=== PATIENT | female | born 1975 | race Caucasian/White ===

== ENCOUNTER → 2019-08-03 | Outpatient (CLI) | payer OTHER ==
--- NOTE | 2019-08-03 11:48 | US ---
EXAMINATION TYPE: US pelvis complete transvag DATE OF EXAM: 08/03/2019 COMPARISON: 2009 CLINICAL HISTORY: PELVIC PAIN R10.2. TECHNIQUE: . Transabdominal sonographic images of the pelvis were acquired. Transvaginal sonographi c images were medically necessary to better assess the following anatomy: ovaries Date of LMP: 07/28/2019 EXAM MEASUREMENTS: Uterus: 9.2 x 3.5 x 4.0 cm Endometrial Stripe: 0.3 cm Right Ovary: 2.3 x 1.6 x 1.3 cm Left Ovary: 2.3 x 1.8 x 2.1 cm 1. Uterus: Retroverted small nabothian cyst 0.3 x 0.4 x 0.5 cm, 2. Endometrium: small probable polyp 0.2 cm, fluid in endometrium 3. Right Ovary: small cyst 0.4 x 0.3 x 0.3 cm 4. Left Ovary: multiple cysts largest 1.4 x 1.2 x 1.4 cm, 0.9 x 1.4 x 1.2 cm 5. Bilateral Adnexa: wnl 6. Posterior cul-de-sac: wnl IMPRESSION: 1. Probable endometrial polyp. 2. Ovarian cysts likely functional in nature. This can be confirmed with follow-up study in 6 weeks.
== END | disposition home or self-care (01) ==
LOC: RADUSWWP 10:35
PROVIDERS: ATTEND Family Medicine
DX: R10.2 Pelvic and perineal pain (principal)
CPT/HCPCS: 76830; 76856

== ENCOUNTER → 2020-03-15 | Outpatient (CLI) | payer OTHER ==
--- NOTE | 2020-03-15 14:55 | CT ---
EXAMINATION TYPE: CT abdomen pelvis w con DATE OF EXAM: 03/15/2020 COMPARISON: 03/02/2010 INDICATION: Abdominal bloating, gassy and low pelvic pain DLP: 919.1 mGycm, Automated exposure control for dose reduction was used. CONTRAST: 100 mL of Isovue 300. Study performed with Oral Contrast TECHNIQUE: Axial images were obtained from above the diaphragm to the pubic rami in the axial plane a t 5 mm thick sections. Reconstructed images are reviewed on the computer in the coronal plane. FINDINGS: Limited CT sections are obtained the lung bases. The lung bases are clear. CT ABDOMEN: Liver: Normal Spleen: Normal Pancreas: Normal Adrenal glands: The adrenal glands are normal. Gallbladder: Normal Kidneys: No masses are evident. No hydronephrosis is present. No cysts are present. Delayed images were obtained through the kidneys, which remain unremarkable. There is a 0.5 cm calcification periph eral left mid kidney. Aorta: Vascular calcification is within the aorta. Inferior vena cava: Normal. CT PELVIS: Loops of bowel within the abdomen and pelvis are normal. There are loops of bowel which are incom pletely distended or lack oral contrast limiting their evaluation. Appendix: Normal as visualized. Urinary bladder: Normal. Genitourinary structures: Uterus is normal. Adnexal regions are clear. No free fluid is within the pe lvis. Osseous structures: No suspicious lytic or sclerotic lesions. IMPRESSIONS: 1. Nonobstructing 0.5 cm calcification peripheral left mid kidney.
== END | disposition home or self-care (01) ==
LOC: RADCTMAIN 07:38
PROVIDERS: ATTEND Nurse Practitioner Family
DX: N28.89 Other specified disorders of kidney and ureter (principal)
CPT/HCPCS: 74177; Q9967

== ENCOUNTER → 2020-03-23 | Outpatient (CLI) | payer OTHER ==
--- NOTE | 2020-03-24 09:35 | ECHOF ---
Referral Reason:R01.1 Cardiac murmur, R00.2 palpations, Abn EKG MEASUREMENTS -------- HEIGHT: 167.6 cm WEIGHT: 85.3 kg BP: RVIDd: 3.0 cm (< 3.3) IVSd: 0.9 cm (0.6 - 1.1) LVIDd: 4.5 cm (3.9 - 5.3) LVPWd: 0.9 cm (0.6 - 1.1) IVSs: 1.4 cm LVIDs: 2.9 cm LVPWs: 1.4 cm LA Diam: 3.2 cm (2.7 - 3.8) Ao Diam: 2.9 cm (2.0 - 3.7) AV Cusp: 1.9 cm (1.5 - 2.6) MV EXCURSION: 15.184 mm (> 18.000) MV EF SLOPE: 125 mm/s (70 - 150) EPSS: 0.7 cm MV E Jakub: 0.91 m/s MV DecT: 279 ms MV A Jakub: 0.58 m/s MV E/A Ratio: 1.55 FINDINGS -------- Sinus rhythm. This was a technically good study. LV size, wall thickness and systolic function are normal, with an EF greater than 55%. The left shine tricular size is normal. The right ventricle is normal in size. Normal LA size by volume 22+/-6 ml/m2. The right atrial size is normal. Interatrial and interventricular septum intact. The aortic valve is trileaflet, and appears structurally normal. No aortic stenosis or regurgitation. The mitral valve is normal. There is trace mitral regurgitation. The tricuspid valve appears structurally normal. No regurgitation noted There is no pulmonic regurgitation present. The aortic root size is normal. Normal inferior vena cava with normal inspiratory collapse consistent with estimated right atrial pre ssure of 5 mmHg. There is no pericardial effusion. CONCLUSIONS -------- 1. LV size, wall thickness and systolic function are normal, with an EF greater than 55%. 2. Normal LA size by volume 22+/-6 ml/m2. 3. The aortic valve is trileaflet, and appears structurally normal. No aortic stenosis or regurgitati on. 4. There is trace mitral regurgitation. 5. There is no pericardial effusion. [employer] DR[employer]: Joelle Jackson RDCS
--- NOTE | 2020-03-28 14:00 | HM ---
Baseline EKG showed sinus rhythm. Patient remained in sinus rhythm throughout the recording with an average heart rate of 179. Minimum is 55 and maximum 131. Patient had occasional APCs and occasional PVCs. Patient did not maintain a diary. Final impression #1. Sinus rhythm. #2. Occasional APCs. #3. Occasional PVCs #4. Patient did not maintain a diary MTDD
== END | disposition home or self-care (01) ==
LOC: RADECHMAIN 11:26
PROVIDERS: ATTEND Family Medicine
DX: R00.2 Palpitations (principal); R94.31 Abnormal electrocardiogram [ECG] [EKG]; R01.1 Cardiac murmur, unspecified
CPT/HCPCS: 93225; 93226; 93306

== ENCOUNTER → 2020-04-14 | Outpatient (CLI) | payer OTHER ==
--- NOTE | 2020-04-14 11:03 | FL ---
EXAMINATION TYPE: FL UGI air w small bowel DATE OF EXAM: 04/14/2020 COMPARISON: CT abdomen and pelvis March 15, 2020. HISTORY: Bloating and abdominal pain. GERD. TECHNIQUE: A double contrast UGI study is performed with small bowel follow through. 40 seconds of f luoroscopic time utilized. 65 spot images apex. FINDINGS: [employer] image of the abdomen shows no gross abnormality. The esophagus shows normal motility and emptying into the stomach. No evidence of fixed hiatal herni a or stricture noted. No diverticulum seen. The stomach shows less than optimal distention due to poor tolerance of air crystals. No obvious mass or focal ulcer. No prominence of gastric folds. Mild to moderate esophageal reflux was seen during r eal time performance of this study into the mid to distal esophagus. The duodenal bulb and sweep are unremarkable. The small bowel study shows normal transit to the colon in less than 75 minutes. There is normal mu cosal fold pattern throughout the small bowel. There is no evidence of any stricture or filling defe ct noted. The terminal ileum is spotted and appears within normal limits. IMPRESSION: Ncop-rh-hvidcxok distal gastroesophageal reflux.
== END | disposition home or self-care (01) ==
LOC: RADFLMAIN 07:40
PROVIDERS: ATTEND Family Medicine
DX: K21.9 Gastro-esophageal reflux disease without esophagitis (principal)
CPT/HCPCS: 74240; 74248

== ENCOUNTER 2020-04-18 07:58 | Day surgery (SDC) | payer OTHER ==
[2020-03-28 09:27] VITALS: BMI 30.3
[~2020-04-18 07:58] MED LIST: LACTATED RINGERS 1,000 ML IV SCH; LIDOCAINE 1% (10MG/ML) FOR IV START INTRADERMA PRN
[2020-04-18 08:22] VITALS: RESP 16; TEMP 98.6
[2020-04-18] MEDS ORDERED: PROPOFOL 10 MG/ML 20 ML VIAL IV ONE (08:47)
--- NOTE | 2020-04-18 09:18 | P.PCN ---
Date of Procedure: 04/18/20 Description of Procedure: BRIEF HISTORY: Patient is a 44-year-old female presenting for colonoscopy for evaluation of diarrhea. She reports episodes of intermittent loose bowel movements and diarrhea. She has also seen some intermittent bright red blood per rectum. The patient also reports abdominal pain occurring intermittently. PROCEDURE PERFORMED: Colonoscopy with biopsy and polypectomy. PREOPERATIVE DIAGNOSIS: Diarrhea, altered bowel function, blood per rectum. ESTIMATED BLOOD LOSS: Minimal. IV sedation per Anesthesia. PROCEDURE: After informed consent was obtained, the patient, was brought into the endoscopy unit. IV sedation was administered by Anesthesia under continuous monitoring. Digital rectal examination was normal. Initially the Olympus CF-190 flexible video colonoscope was then inserted in the rectum, gradually advanced into the cecum without any difficulty. Careful examination was performed as the scope was gradually being withdrawn. Ileocecal valve and the appendiceal orifice were visualized and appeared normal. Prep was excellent. Mucosa of the cecum, ascending colon, transverse colon, descending colon, sigmoid colon, and rectum appeared normal, with biopsies of the right and left colon taken in the setting of altered bowel function. The terminal ileum was intubated and appeared normal with biopsies taken. A diminutive 1 mm ascending colon polyp was removed cold forcep polypectomy. Retroflexion was performed in the rectum and no lesions were seen, low-grade internal hemorrhoids seen. The patient tolerated the procedure well. IMPRESSION: Diminutive ascending colon polyp removed with cold forcep polypectomy. Otherwise normal-appearing colon from rectum to cecum with normal-appearing terminal ileum and random biopsies taken of the terminal ileum, right colon and left colon in the setting of diarrhea and altered bowel function. RECOMMENDATIONS: Findings of this examination were discussed with the patient. Okay to resume diet. Okay to resume medications. Await pathology from biopsies and polypectomy. Would recommend repeat colonoscopy in 7 years for screening, pending pathology from polypectomy.
[2020-04-18 09:22] VITALS: BP 100/66; PULSE 75
== END 2020-04-18 10:05 | disposition home or self-care (01) ==
LOC: ORWHC2ENDO 07:58
PROVIDERS: ATTEND Internal Medicine
DX: K63.5 Polyp of colon (principal); K64.8 Other hemorrhoids; K21.9 Gastro-esophageal reflux disease without esophagitis; F32.9 Major depressive disorder, single episode, unspecified
CPT/HCPCS: 81025; 88305; 45380; J2704

== ENCOUNTER → 2021-07-25 | Outpatient (CLI) | payer OTHER ==
--- NOTE | 2021-07-25 14:10 | XR ---
EXAMINATION TYPE: XR Hip Complete RT DATE OF EXAM: 07/25/2021 Comparison: None Clinical History: 45-year-old female RT HIP PAIN Findings: There is degenerative spurring along the superolateral acetabular margin and also the posterior femor al head neck junction. An joint space is relatively maintained. Right-sided pelvic phlebolith. No acu te fracture, subluxation, or dislocation. Impression: Mild degenerative change of the right hip. No acute osseous abnormality seen.
== END | disposition home or self-care (01) ==
LOC: RADXRMAIN 09:39
PROVIDERS: ATTEND Orthopaedic Surgery
DX: M16.11 Unilateral primary osteoarthritis, right hip (principal)
CPT/HCPCS: 73502

== ENCOUNTER 2022-07-24 08:34 | Emergency (ER) | payer OTHER ==
[2022-07-24 08:41] VITALS: BP 113/78; PULSE 78; RESP 18; TEMP 97.6
[2022-07-24] MEDS ORDERED: ORPHENADRINE 30 MG/ML 2 ML VIAL IM STA (08:58)
[2022-07-24] MEDS ORDERED: KETOROLAC 15 MG/ML 1 ML VIAL IM STA (08:58)
--- NOTE | 2022-07-24 09:14 | ED ---
General Adult HPI - General Chief complaint: Back Pain/Injury Stated complaint: Shoulder Pain, SOB Time Seen by Provider: 07/24/22 08:45 Source: patient, RN notes reviewed, old records reviewed Mode of arrival: ambulatory Limitations: no limitations - History of Present Illness Initial comments: This is a 46-year-old female presents emergency Department complaining of upper back pain between her shoulder blades. Patient states she twisted this morning and then was going to bend down but when she twisted she had this very sharp spasmodic pain between her shoulder blades and it went from one shoulder to the other. Patient states currently she takes deep breath she feels a pulling but if she twists the pain is still there fairly significantly. Patient states the rest it's much improved but she still can feel achiness in her back. Patient denies any shortness of breath per patient denies any chest pain. Patient denies any radiation of the pain aside from between the 2 shoulders. Patient denies any history of similar. Patient states it feels like a muscular pain to her. Patient denies any lightheadedness or dizziness. Patient denies abdominal pain patient denies nausea vomiting diarrhea. - Related Data Home Medications Medication Instructions Recorded Confirmed Cholecalciferol [Vitamin D3 (25 2,000 unit PO DAILY 04/13/20 04/13/20 Mcg = 1000 Iu)] Triamcinolone Acetonide [Nasacort] 1 spray EA NOSTRIL DAILY PRN 04/13/20 04/13/20 Previous Rx's Medication Instructions Recorded Cyclobenzaprine [Flexeril] 10 mg PO TID #20 tab 07/24/22 Ketorolac [Toradol] 10 mg PO Q6HR #15 tab 07/24/22 Allergies Allergy/AdvReac Type Severity Reaction Status Date / Time No Known Allergies Allergy Verified 07/24/22 08:41 Review of Systems ROS Statement: Those systems with pertinent positive or pertinent negative responses have been documented in the HPI. ROS Other: All systems not noted in ROS Statement are negative. Past Medical History Additional Past Medical History / Comment(s): states irregular heart beat with recent heart monitor-results normal; occ heart murmur. sinus problems, feeling bloated and gasey for past year. History of Any Multi-Drug Resistant Organisms: None Reported Past Surgical History: No Surgical Hx Reported Additional Past Surgical History / Comment(s): epidural lumbar injection Past Anesthesia/Blood Transfusion Reactions: Motion Sickness Additional Past Anesthesia/Blood Transfusion Reaction / Comment(s): no anesthesia hx Past Psychological History: ADD/ADHD, Depression Smoking Status: Former smoker Past Alcohol Use History: Rare Past Drug Use History: None Reported - Past Family History Mother Family Medical History: No Reported History General Exam - General Exam Comments Initial Comments: GENERAL: Patient is well-developed and well-nourished. Patient is nontoxic and well- hydrated and is in mild distress. ENT: Neck is soft and supple. No significant lymphadenopathy is noted. Oropharynx is clear. Moist mucous membranes. Neck has full range of motion without eliciting any pain. EYES: The sclera were anicteric and conjunctiva were pink and moist. Extraocular movements were intact and pupils were equal round and reactive to light. Eyelids were unremarkable. PULMONARY: Unlabored respirations. Good breath sounds bilaterally. No audible rales rhonchi or wheezing was noted. CARDIOVASCULAR: There is a regular rate and rhythm without any murmurs gallops or rubs. ABDOMEN: Soft and nontender with normal bowel sounds. SKIN: Skin is clear with no lesions or rashes and otherwise unremarkable. NEUROLOGIC: Patient is alert and oriented x3. Cranial nerves II through XII are grossly intact. Motor and sensory are also intact. Normal speech, volume and content. Symmetrical smile. MUSCULOSKELETAL: Normal extremities with adequate strength and full range of motion. Patient has tenderness along the paraspinous muscles of the upper thoracic back. Patient states the pain is elicited with palpation is the same pain she was experiencing when she twists LYMPHATICS: No significant lymphadenopathy is noted PSYCHIATRIC: Normal psychiatric evaluation. Limitations: no limitations Course Vital Signs 07/24/22 08:37 Temperature 97.6 F Pulse Rate 78 Respiratory 18 Rate Blood Pressure 113/78 O2 Sat by Pulse 98 Oximetry Medical Decision Making - Medical Decision Making Patient was given Toradol and Norflex IM in the emergency department. It appears as was a musculoskeletal pain and the patient was in agreement with that. Patient had no other symptoms at this time. Disposition Clinical Impression: Thoracic back pain Disposition: HOME SELF-CARE Condition: Good Instructions (If sedation given, give patient instructions): Back Pain (ED) Prescriptions: Cyclobenzaprine [Flexeril] 10 mg PO TID #20 tab Ketorolac [Toradol] 10 mg PO Q6HR #15 tab Is patient prescribed a controlled substance at d/c from ED?: No Referrals: None,Stated [Primary Care Provider] - 1-2 days Time of Disposition: 09:14
== END 2022-07-24 09:42 | disposition home or self-care (01) ==
LOC: EC 08:34
DX: M54.6 Pain in thoracic spine (principal); F90.9 Attention-deficit hyperactivity disorder, unspecified type; F32.A Depression, unspecified; Z87.891 Personal history of nicotine dependence; Z79.899 Other long term (current) drug therapy
CPT/HCPCS: 99284; 96372 ×2; J2360; J1885

== ENCOUNTER → 2022-11-27 | Outpatient (CLI) | payer OTHER ==
--- NOTE | 2022-11-27 10:14 | US ---
EXAMINATION TYPE: US pelvic complete DATE OF EXAM: 11/27/2022 COMPARISON: NONE CLINICAL HISTORY: N92.6 IRREGULAR MENSTRUATION, UNSPECIFIED. irregular menses had ablation x 2 years ago hads IUD. TECHNIQUE: Transabdominal (TA). Transabdominal sonographic images of the pelvis were acquired. EXAM MEASUREMENTS: Uterus: 8.6 x 4.8 x cm Endometrial Stripe: limited due to IUD Right Ovary: 2.6 x 1.9 x 2.0 cm Left Ovary: 2.2 x 1.7 x 1.9 cm 1. Uterus: Anteverted Hypoechoic area 2.7 x 2.6 x 2.3 cm. 2. Endometrium: IUD visualized. 3. Right Ovary: cystic area 1.5 x 1.6 x 1.8 cm. 4. Left Ovary: wnl 5. Bilateral Adnexa: wnl 6. Posterior cul-de-sac: wnl IMPRESSION: 1 IUD noted to be in place. 2. Probable leiomyomatous change of the uterus. 3. Probable follicular cyst right ovary.
== END | disposition home or self-care (01) ==
LOC: RADUSWWP 09:31
PROVIDERS: ATTEND Family Medicine
DX: N92.6 Irregular menstruation, unspecified (principal)
CPT/HCPCS: 76856

== ENCOUNTER → 2024-08-13 | Outpatient (CLI) | payer OTHER ==
--- NOTE | 2024-08-16 11:30 | MM ---
Reason for Exam: Screening (asymptomatic). Baseline mammogram. Patient History: Menarche at age 18. First Full-Term at age 31. Late child-bearing (after 31). Perimenopausal. Hormonal Contraceptives, from age 18 until age 26. Risk Values: Elisabet 5 year model risk: 1.1%. NCI Lifetime model risk: 11.6%. Prior Study Comparison: Patient's first Mammogram. No prior studies available for comparison. Tissue Density: The breasts are heterogeneously dense, which may obscure small masses. Findings: Analyzed By CAD. Right breast: There is no suspicious group of microcalcifications or new suspicious mass. Left breast: There is no suspicious group of microcalcifications or new suspicious mass. Overall Assessment: Negative, BI-RAD 1 Management: Screening Mammogram of both breasts in [address] [facility] will attempt to contact patient to return for supplemental views and ultrasound if indicated. Patient should continue monthly self-breast exams. A clinical breast exam by your physician is recommended on an annual basis. This exam should not preclude additional follow-up of suspicious palpable abnormalities. Note on Elisabet scores and lifetime risk: 1. A Elisabet score greater than 3% is considered moderate risk. If this is the case, consider specialist referral to assess eligibility for a risk reducing agent. 2. If overall lifetime risk for the development of breast cancer is 20% or higher, the patient may qualify for future screening with alternating mammogram and breast MRI. [facility], , 08/16/2024 11:27 AM. Electronically signed and approved by: Alirio Hassan DO
== END | disposition home or self-care (01) ==
LOC: RADMAMWWP 11:18
PROVIDERS: ATTEND Family Medicine
DX: Z12.31 Encounter for screening mammogram for malignant neoplasm of breast (principal); R92.333 Mammographic heterogeneous density, bilateral breasts
CPT/HCPCS: 77067